=== PATIENT | male | born 1970 | race Two or more races ===

== ENCOUNTER 2017-03-05 21:39 | Inpatient (IN) | payer MEDICAID ==
[~2017-03-05] VITALS: Ht 165.1 cm; Wt 80.3 kg
[2017-03-05 22:37] LABS: BASOPHILS % 0.4 % (0.0-2.0); EOSINOPHILS % 0.6 % (0.0-5.0); HEMATOCRIT. 39.2 % (42.0-52.0); HEMOGLOBIN. 13.5 g/dL (14.0-18.0); LYMPHOCYTES % 15.7 % (20.0-50.0); MEAN CORPUSCULAR HEMOGLOBIN 30.7 pg (28.0-32.0); MEAN CORPUSCULAR VOLUME 89.1 fL (80.0-94.0); MEAN PLATELET VOLUME 8.6 fl (7.4-10.4); MONOCYTES % 8.9 % (2.0-8.0); NEUTROPHILS % 74.4 % (40.0-76.0); PLATELET 115 x1000/uL (130-400); RED CELL DISTRIBUTION WIDTH 13.6 % (11.6-14.6)
[2017-03-05 22:43] LABS: PARTIAL THROMBOPLASTIN TIME 26.7 sec (23.4-31.0); PROTHROMBIN TIME 10.8 sec (9.4-11.6)
[2017-03-05 22:59] LABS: CARBON DIOXIDE 26 mEq/L (21-32); CHLORIDE 88 mEq/L (98-107); PHOSPHORUS 1.9 mg/dL (2.5-4.9); T4 FREE 1.15 ng/dL (0.76-1.46); TROPONIN I 0.03 ng/mL (0.00-0.04)
[2017-03-05] MEDS ORDERED: DILTIAZEM HCL 5MG/ML 5ML VIAL IV ONE (23:15)
[2017-03-05] MEDS ORDERED: KCL 10MEQ/50ML PREMIX 50 ML IV ONE (23:45)
[2017-03-06] MEDS: METOPROLOL TARTRATE 25MG TABLET PO SCH ×2 (12:30→21:00)
[2017-03-06] MEDS ORDERED: FOLIC ACID/VITAMIN B COMP W-C TABLET PO SCH (15:15)
[2017-03-06 15:39] VITALS: BP 135/84
[2017-03-06 16:00] VITALS: BP 135/84
[2017-03-06] MEDS ORDERED: SEVE800T8 PO (16:28)
[2017-03-06] MEDS ORDERED: CINA30 PO (16:28)
[2017-03-06] MEDS ORDERED: AMLO2.5T45 PO (16:28)
[2017-03-06] MEDS ORDERED: METO25TA6 PO (16:28)
[2017-03-06] MEDS ORDERED: CINACALCET HCL 90MG TABLET PO SCH (18:00)
[2017-03-06 20:00] VITALS: BP 113/77
[2017-03-06] MEDS ORDERED: ACETAMINOPHEN 650MG/20.3ML UDC GT PRN (23:00)
[2017-03-06] MEDS ORDERED: ONDANSETRON HCL 4MG/2ML VIAL IV PRN (23:00)
[2017-03-06] MEDS ORDERED: ACETAMINOPHEN 650MG SUPP PR PRN (23:00)
[2017-03-06] MEDS ORDERED: CLONIDINE 0.1MG TABLET PO PRN (23:00)
[2017-03-06] MEDS ORDERED: NA PHOS,M-B/NA PHOS,DI-BA ENEMA 118ML PR PRN (23:00)
[2017-03-06] MEDS ORDERED: IPRATROPIUM/ALBUTEROL 0.5-3(2.5)MG/3ML NEB INH PRN (23:00)
[2017-03-06] MEDS ORDERED: DIPHENHYDRAMINE 50MG/ML VIAL IV PRN (23:00)
[2017-03-06] MEDS ORDERED: HYDROCODONE/ACETAMINOPHEN 5/325MG TABLET PO PRN (23:00)
[2017-03-06] MEDS ORDERED: MAGNESIUM/ALUMINUM HYDROXIDE/SIMETHICONE 30ML UDC PO PRN (23:00)
[2017-03-06] MEDS ORDERED: ACETAMINOPHEN 325MG TABLET PO PRN (23:00)
[2017-03-07] VITALS: BP 132/76
[2017-03-07 04:00] VITALS: BP 131/79
[2017-03-07] MEDS ORDERED: SODIUM CHLORIDE 0.9% INJ 3ML FLUSH IVF SCH (06:00)
[2017-03-07 06:43] LABS: BASOPHILS % 0.3 % (0.0-2.0); EOSINOPHILS % 1.2 % (0.0-5.0); HEMATOCRIT. 40.9 % (42.0-52.0); HEMOGLOBIN. 13.9 g/dL (14.0-18.0); LYMPHOCYTES % 16.7 % (20.0-50.0); MEAN CORPUSCULAR HEMOGLOBIN 30.7 pg (28.0-32.0); MEAN CORPUSCULAR VOLUME 90.1 fL (80.0-94.0); MEAN PLATELET VOLUME 9.1 fl (7.4-10.4); MONOCYTES % 11.8 % (2.0-8.0); PLATELET 116 x1000/uL (130-400); RED BLOOD CELL COUNT 4.54 mill/uL (4.7-6.1); RED CELL DISTRIBUTION WIDTH 13.8 % (11.6-14.6)
[2017-03-07 08:00] VITALS: BP 133/73
[2017-03-07] MEDS ORDERED: SEVELAMER CARBONATE 800 MG TABLET PO SCH (08:10)
[2017-03-07 08:36] LABS: PHOSPHORUS 7.5 mg/dL (2.5-4.9)
[2017-03-07] MEDS ORDERED: AMLODIPINE 5MG TABLET PO SCH (09:00)
[2017-03-07] MEDS ORDERED: CINACALCET HCL 60MG TABLET PO SCH (09:00)
[2017-03-07] MEDS ORDERED: METOPROLOL TARTRATE 25MG TABLET PO SCH (09:00)
[2017-03-07 12:00] VITALS: BP_SYST 117; BP_SYST 128; BP_SYST 140; BP_DIAS 76; BP_DIAS 80
[2017-03-07 20:00] VITALS: BP 145/89
[2017-03-07] MEDS: METOPROLOL TARTRATE 25MG TABLET PO SCH (20:10)
[2017-03-07 20:11] VITALS: BP 145/89
== END 2017-03-07 20:50 | disposition home or self-care (01) | DRG 201 ==
LOC: ER 21:39 → 5WST 03-06 03:14 → EDBD 03-06 03:14 → ENRESERV 03-06 13:02 → CANRESERV 03-06 13:02 → ENRESERV 03-06 14:31 → 7WST 03-06 15:38
PROVIDERS: ADMIT Family Medicine; ATTEND Family Medicine
DX: I47.1 Supraventricular tachycardia (principal); N18.6 End stage renal disease; I12.0 Hypertensive chronic kidney disease with stage 5 chronic kidney disease or end stage renal disease; D69.6 Thrombocytopenia, unspecified; E87.1 Hypo-osmolality and hyponatremia; E87.6 Hypokalemia; D64.9 Anemia, unspecified; E78.00 Pure hypercholesterolemia, unspecified; E83.39 Other disorders of phosphorus metabolism; Z79.899 Other long term (current) drug therapy; Z99.2 Dependence on renal dialysis
CPT/HCPCS: 36415; 71010; 80048; 80053; 83690; 83735; 84100; 84132; 84439; 84443; 84484; 85025; 85610; 85730; 93005; 93306; 96365; 96375; 99291; J3480; J3490; J7030